=== PATIENT | female | born 1965 | race Caucasian/White ===

== ENCOUNTER 2017-09-24 11:57 | Outpatient (CLI) | payer OTHER ==
--- NOTE | 2017-09-24 13:57 | RAD ---
THREE VIEWS LUMBAR SPINE: DATE: 09/24/17. HISTORY: Disability evaluation for low back pain. History of prior lumbar surgery. FINDINGS: There are posterior rods and multiple pedicular screws transfixing the thoracolumbar spine. There is evidence of anterior fusion at the L4-5 and L5-S1 levels with intradiskal prostheses also present at these levels. There is subtle lucency within the screws transfixing the sacroiliac joints, but this is probably related to mock effect as opposed to hardware loosening. 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 Multiple surgical clips overlie the left pelvis. No fracture or subluxation is seen. Vertebral body heights appear to be within normal limits. There are vascular calcifications seen in the abdominal aorta. IMPRESSION: Extensive postsurgical changes thoracolumbar spine related to posterior fusion. There is also anteri or fusion of the L4-5 and L5-S1 levels. No obvious hardware complication is seen. POS: [facility]
== END 2017-09-24 11:58 | disposition home or self-care (01) ==
LOC: NAV LAB 11:57
PROVIDERS: ATTEND Family Medicine
DX: M54.5 Low back pain (principal); M41.9 Scoliosis, unspecified; Z98.890 Other specified postprocedural states; M43.26 Fusion of spine, lumbar region; M43.27 Fusion of spine, lumbosacral region
CPT/HCPCS: 72100